=== PATIENT | female | born 1990 | race Caucasian/White ===

== ENCOUNTER 2021-04-26 08:00 | Emergency (ER) | payer OTHER ==
[~2021-04-26] VITALS: Ht 157.5 cm; Wt 49.9 kg
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
[2021-04-26 08:34] LABS: ABSOLUTE NEUTROPHILS 4.1 thou/uL (1.4-8.2); BASOPHILS 0.7 % (0.0-2.0); EOSINOPHILS 0.9 % (0.0-3.0); HEMATOCRIT 38.7 % (37.0-47.0); HEMOGLOBIN 12.6 gm/dL (12.0-15.0); LYMPHOCYTES 37.2 % (24.0-44.0); MCH 28.8 pg (26.0-34.0); MCHC 32.6 g/dL (28.0-37.0); MCV 88.2 fL (80.0-100.0); MONOCYTES 9.5 % (1.0-8.0); PLATELET COUNT 325 thou/uL (150-400); POLYS 51.7 % (36.0-66.0); RBC 4.38 mil/uL (4.20-5.00); RDW 15.1 % (10.5-14.5); WBC 7.9 thou/uL (4.0-11.0)
--- NOTE | 2021-04-26 08:34 | EKG ---
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1990 Requested By: Didier Bell Order Number: [id number] MD: Dragan Desir Measurements Intervals [place] Rate: 117 P: 71 MI: 144 QRS: 77 QRSD: 92 T: 16 QT: 349 QTc: 487 Interpretive Statements Sinus tachycardia Minimal ST depression, diffuse leads Borderline prolonged QT interval No previous ECG available for comparison Electronically Signed On 04-26-2021 8:34:48 SENIOR CONSULTING MANAGER by Dragan Desir [email or web address] <ELECTRONICALLY SIGNED> By: Dragan Desir MD, [facility] 04/26/21 [id number] [phone] Dragan Desir MD, FACC /EPI
[2021-04-26 08:59] LABS: CALCIUM 9.6 mg/dL (8.5-10.1); POTASSIUM 3.4 mmol/L (3.5-5.1)
[2021-04-26 09:09] LABS: ALBUMIN 4.2 g/dL (3.4-5.0); MAGNESIUM 2.3 mg/dL (1.8-2.4); TOTAL BILIRUBIN 0.4 mg/dL (0.2-1.0)
[2021-04-26 09:13] LABS: URINE BILIRUBIN NEGATIVE (Negative); URINE BLOOD TRACE (Negative); URINE CLARITY CLEAR; URINE COLOR YELLOW; URINE GLUCOSE-RANDOM* NEGATIVE (Negative); URINE KETONES 2+ (Negative); URINE LEUKOCYTES-REFLEX TRACE (Negative); URINE NITRITE-REFLEX NEGATIVE (Negative); URINE PROTEIN (DIPSTICK) NEGATIVE (Negative); URINE SPECIFIC GRAVITY >= 1.030 (1.005-1.035); URINE UROBILINOGEN 0.2 E.U./dl (0.2-1.0)
[2021-04-26] MEDS ORDERED: ALPRAZOLAM1 MG PO (09:18)
[2021-04-26 09:21] LABS: AMP/METHAMP Negative (Negative); BARBITURATES Negative (Negative); BENZODIAZEPINES Negative (Negative); COCAINE Negative (Negative); METHADONE Negative (Negative); OPIATES Negative (Negative); PCP Negative (Negative)
[2021-04-26 09:29] VITALS: BP 110/71
== END 2021-04-26 09:31 | disposition home or self-care (01) ==
LOC: ER 08:00
PROVIDERS: Emergency Medicine
DX: R56.9 Unspecified convulsions (principal); F11.23 Opioid dependence with withdrawal; R11.0 Nausea; F41.9 Anxiety disorder, unspecified; Z88.0 Allergy status to penicillin; Z88.2 Allergy status to sulfonamides